=== PATIENT | male | born 1960 | race African-American/Black ===

== ENCOUNTER 2022-03-01 19:08 | Emergency (ER) | payer OTHER ==
[~2022-03-01] VITALS: Ht 170.2 cm; Wt 111.6 kg
[2022-03-01] MEDS ORDERED: ACETAMINOPHEN 325 MG TAB PO ONE (19:30)
[2022-03-01 20:31] VITALS: BP 130/70
== END 2022-03-01 20:32 | disposition home or self-care (01) ==
LOC: ER 19:19
DX: R50.9 Fever, unspecified (principal); J10.1 Influenza due to other identified influenza virus with other respiratory manifestations; R05.9 Cough, unspecified; I10 Essential (primary) hypertension; E78.5 Hyperlipidemia, unspecified; R53.1 Weakness; Z20.822 Contact with and (suspected) exposure to COVID-19
CPT/HCPCS: 99283; U0002